=== PATIENT | male | born 1995 | race Caucasian/White ===

== ENCOUNTER 2021-03-29 05:15 | Emergency (ER) | payer MEDICARE, OTHER ==
[~2021-03-29] VITALS: Ht 182.9 cm; Wt 83.9 kg
[2021-03-29 05:34] LABS: URINE BILIRUBIN NEGATIVE (Negative); URINE BLOOD NEGATIVE (Negative); URINE CLARITY CLEAR; URINE COLOR YELLOW; URINE GLUCOSE-RANDOM NEGATIVE (Negative); URINE KETONES NEGATIVE (Negative); URINE LEUKOCYTES-REFLEX NEGATIVE (Negative); URINE NITRITE-REFLEX NEGATIVE (Negative); URINE PROTEIN NEGATIVE (Negative); URINE SPECIFIC GRAVITY >= 1.030 (1.005-1.030); URINE UROBILINOGEN 0.2 E.U./dl (0.2-1.0)
[2021-03-29 05:46] LABS: ABSOLUTE BASOPHILS 0.1 thou/uL (0.0-0.2); ABSOLUTE EOSINOPHILS 0.2 thou/uL (0.0-0.7); ABSOLUTE LYMPHOCYTES 4.2 thou/uL (0.8-5.3); ABSOLUTE MONOCYTES 0.8 thou/uL (0.0-1.2); BASOPHILS 0.9 %; EOSINOPHILS 1.6 %; HEMATOCRIT 45.2 % (42.0-52.0); HEMOGLOBIN 15.7 gm/dL (14.0-18.0); LYMPHOCYTES 37.4 %; MCH 30.4 pg (26.0-34.0); MCHC 34.7 g/dL (28.0-37.0); MCV 87.6 fL (80.0-100.0); MONOCYTES 6.9 %; MPV 7.6 fl. (7.2-11.1); NUCLEATED RBCS 0 /100WBC; PLATELET COUNT* 175 thou/uL (150-400); POLYS 53.2 %; RBC 5.16 mil/uL (4.50-6.00); RDW-CV 13.4 % (10.5-14.5); WBC 11.3 thou/uL (4.0-11.0)
[2021-03-29 05:51] LABS: AMP/METHAMP Negative (Negative); BARBITURATES Negative (Negative); BENZODIAZEPINES Negative (Negative); COCAINE Negative (Negative); METHADONE Negative (Negative); OPIATES Negative (Negative); PCP Negative (Negative); THC Negative (Negative)
[2021-03-29] MEDS ORDERED: DEPAKOTE125 MG PO (05:53)
[2021-03-29 06:03] LABS: CREATININE 0.9 mg/dL (0.6-1.3); POTASSIUM 3.9 mmol/L (3.5-5.1)
[2021-03-29 06:07] LABS: TOTAL BILIRUBIN 0.3 mg/dL (<0.1-1.0)
[2021-03-29 06:25] LABS: SALICYLATE < 2.8 mg/dL (2.8-20.0)
[2021-03-29 06:30] LABS: ACETAMINOPHEN < 2 ug/mL (10-30); ALCOHOL < 10 mg/dL (<10)
[2021-03-29 06:38] VITALS: BP 102/87
== END 2021-03-29 06:39 | disposition home or self-care (01) ==
LOC: M.ERS 05:15
PROVIDERS: Emergency Medicine
DX: F81.9 Developmental disorder of scholastic skills, unspecified (principal); Z79.899 Other long term (current) drug therapy